=== PATIENT | female | born 2005 | race Caucasian/White ===

== ENCOUNTER 2023-12-28 12:18 | Emergency (ER) | payer SELFPAY ==
[2023-12-28] VITALS (7 sets, daily range): BP systolic 111–138; BP diastolic 66–83; PULSE 84–91; RESP 16–18; TEMP 36.7; O2SAT 98–99; BMI 20.3
--- NOTE | 2023-12-28 12:24 | CT_ITS ---
FINAL REPORT TECHNIQUE: Thin section axial images were obtained from skull base to vertex without contrast. Coronal and sagittal reconstruction images were obtained from the axial data. Exam was performed using dose reduction technique. CLINICAL HISTORY: horse hoof hit patients L uatsdin COMPARISON: None FINDINGS: There is no mass effect or midline shift. There is no hydrocephalus. There is no intracranial hemorrhage. The posterior fossa is without acute abnormality. The basilar cisterns are preserved. The soft tissues are without acute abnormality. No acute osseous abnormality is identified. IMPRESSION: No acute intracranial abnormality. Reviewed, Interpreted and Dictated by Radha Goss MD Transcribed by Aicha House Authenticated and [facility]
--- NOTE | 2023-12-28 12:24 | CT_ITS ---
FINAL REPORT TECHNIQUE: Thin section axial images were obtained through the face without contrast. Coronal and sagittal reconstruction images are obtained from the axial data. CLINICAL HISTORY: horse hoof hit patient left jehovah's witness COMPARISON: None FINDINGS: There is no acute facial bone fracture. The paranasal sinuses are clear. The portions of the mastoid air cells which are visualized are intact. The orbital rims are intact. No significant nasal septal deviation is identified. Remaining soft tissues are within normal limits. IMPRESSION: No acute facial fracture. Reviewed, Interpreted and Dictated by Radha Goss MD Transcribed by Aicha House Authenticated and [facility]
--- NOTE | 2023-12-28 12:25 | HMH.EDGENADL ---
Discharge Plan Disposition Patient Disposition: Home, Self-Care Referrals Follow up/Referrals: Provider,Referral, MD [Primary Care Provider] - See instructions Activity Restrictions/Add. Instructions Additional Instructions/Restrictions: At this time it was felt you are safe to be discharged home. If new or worsening symptoms please do not hesitate to return the emergency department. Clinical Impressions Clinical Impression: Closed head injury Discharge ED Provider: Severiano Garcia General Adult HPI General Chief complaint: Head Injury Stated complaint: AO [id number] @ 11:00, struck in head by horse Time Seen by Provider: 12/28/23 12:21 History of Present Illness HPI narrative: Patient is a 18-year-old female with no pertinent past medical history who presents emergency department for evaluation of trauma. Patient was leading a horse this morning when she was struck in the left episcopal by the front hoof with force. No loss of consciousness. Patient is not anticoagulated. No other acute complaints at this time. Related Data Allergies Allergy/AdvReac Type Severity Reaction Status Date / Time No Known Allergies Allergy Verified 12/28/23 12:31 [facility] Disclaimer: The information contained in this section may have been updated after the patient was seen, as this information can be updated by other users. Social History Smoking Status: Never smoker alcohol intake: never current occupational status: other Travel in the last 8 weeks: None ROS Obtained: Yes Systems reviewed as appropriate & no additional complaints except as documented Physical Exam General General appearance: alert and in no apparent distress Head Head exam: normocephalic and other (Area of erythema over the left episcopal and left lateral orbit, no ecchymosis, no raccoon eyes) Eye Eye exam: Present PERRL and EOMI ENT ENT exam: Present mucous membranes moist Neck Neck exam: Present normal inspection Chest Chest inspection: Present normal inspection and symmetric chest wall rise Respiratory Respiratory exam: Absent respiratory distress Cardiovascular Cardiovascular exam: Present regular rate and normal rhythm Extremities Exam Extremities exam: Present normal inspection Neurological Exam Neurological exam: Present alert, CN II-XII intact and normal gait Psychiatric Psychiatric exam: Present normal affect Skin Skin exam: Present warm and dry Medical Decision Making Chavez Inquiry Pt receiving controlled substance: No Vital Signs: 12/28/23 12:20 12/28/23 12:24 12/28/23 12:30 Temperature 98.0 F Temperature Source Oral Pulse Rate Pulse Rate [Radial] 84 Respiratory Rate 16 Blood Pressure 137/79 118/66 Blood Pressure [Right Arm] 137/79 Blood Pressure Mean 98 83 Blood Pressure Mean [Right Arm] 98 Blood Pressure Source [Right Arm] Automatic Cuff Blood Pressure Position [Right Arm] Sitting 02 Sat by Pulse Oximetry 98 Oxygen Delivery Method Room Air 12/28/23 13:00 12/28/23 14:00 12/28/23 14:30 Temperature Temperature Source Pulse Rate 88 91 H Pulse Rate [Radial] Respiratory Rate 18 18 Blood Pressure 111/76 127/73 130/83 Blood Pressure [Right Arm] Blood Pressure Mean 83 82 94 Blood Pressure Mean [Right Arm] Blood Pressure Source [Right Arm] Blood Pressure Position [Right Arm] 02 Sat by Pulse Oximetry 99 99 Oxygen Delivery Method Lab Data Lab Results 12/28/23 12:55: Urine HCG, Qual Negative Orders (Tests/Meds): ORDERS Category Date Time Status CT facial bones wo con Stat Cat Scan 12/28/23 12:[address] head/brain wo con Stat Cat Scan 12/28/23 12:24 Completed Urine , HCG Qual. Stat Lab 12/28/23 12:55 Completed Medical Decision Narrative: In summary patient is a 18-year-old female past medical history described above presents emergency department for evaluation of traumatic injury sustained by a horse. Patient is hemodynamically stable nontoxic-appearing upon arrival, afebrile with a nonfocal neurologic exam. Differential diagnosis includes intracranial hemorrhage, lateral orbital fracture, among others. Cervical spine is cleared clinically per Steele guidelines. Limited trauma workup will be conducted with noncontrasted CT scan of the head and facial bones. Urine will be obtained prior to CT imaging. Workup reviewed by me, negative . CT imaging shows no acute traumatic pathology. Upon repeat evaluation patient continued to be well-appearing. Given this patient is appropriate for discharge at this time. Critical Care Critical Care Time Critical Care Time: No
--- NOTE | 2023-12-28 12:53 | HMH.ITSTN ---
Ct pending. Waiting for preg test, ordered by Dr. Garcia.
--- NOTE | 2023-12-28 12:55 | PC.NURSE ---
PT TO BR FOR URINE SPECIMEN
--- NOTE | 2023-12-28 12:58 | PC.NURSE ---
URINE SENT TO LAB, PT RETURNED TO BED. WARM BLANKET PROVIDED. CALL LIGHT WITHIN REACH
[2023-12-28 13:08] LABS: Urine Pregnancy, HCG Qual. Negative (Negative)
--- NOTE | 2023-12-28 13:23 | PC.NURSE ---
PT TO CT
--- NOTE | 2023-12-28 13:32 | PC.NURSE ---
PT RETURNED FROM CT
== END 2023-12-28 15:26 | disposition home or self-care (01) ==
PROVIDERS: Emergency Provider Emergency Medicine
DX: S09.8XXA Other specified injuries of head, initial encounter (principal); W55.12XA Struck by horse, initial encounter
CPT/HCPCS: 70450; 70486; 81025; 99285